=== PATIENT | female | born 1985 | race Caucasian/White ===

== ENCOUNTER 2018-03-12 09:58 | Emergency (ER) | payer MEDICAID ==
--- NOTE | 2018-03-12 10:07 | ER Document Report ---
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 She has developed a tonsillitis and wants to know if it strep throat or an STD. She also is complaining of pelvic pain without vaginal discharge genitalia lesions. No menses for 2 years. Associated Symptoms: None Exacerbated by: Other - Swallowing Relieved by: Denies - ROS ROS below otherwise negative: Yes Systems Reviewed and Negative: Yes All other systems reviewed and negative Past Medical History - General Information source: Patient Last Menstrual Period: 2 years ago - Social History Smoking Status: Current Every Day Smoker Frequency of alcohol use: None Drug Abuse: None Lives with: Family Family History: Reviewed & Not Pertinent - Medical History Medical History: Negative Notes: Obese, amenorrhea Past Surgical History: Reports: Hx Tubal Ligation Vertical Provider Document - CONSTITUTIONAL Agree With Documented VS: Yes Exam Limitations: No Limitations General Appearance: No Apparent Distress - INFECTION CONTROL TRAVEL OUTSIDE OF THE [place] IN LAST 30 DAYS: No - HEENT Notes: [place] exudative tonsils - NECK Neck: Supple, Lymphadenopathy-Left, Lymphadenopathy-Right - Anterior anterior - RESPIRATORY Respiratory: Breath Sounds Normal, No Respiratory Distress - CARDIOVASCULAR Cardiovascular: Regular Rate, Regular Rhythm - GI/ABDOMEN Gastrointestinal: Abdomen Soft, Abdomen Non-Tender, No Organomegaly - MUSCULOSKELETAL/EXTREMETIES Musculoskeletal/Extremeties: MAEW - NEURO Level of Consciousness: Awake - DERM Integumentary: Warm Course - Re-evaluation Re-evalutation: 03/12/18 rapid strept negtative. wet prep consistant with bacterial vaginosis. pt will call me vasiliy for the STD results. 03/12/18 pt called back, the std negative. - Vital Signs Vital signs: Temp Pulse Resp BP Pulse Ox 98.6 F 95 20 134/83 H 96 03/12/18 10:03 03/12/18 10:03 03/12/18 10:03 03/12/18 10:03 03/12/18 10:03 Discharge - Discharge Clinical Impression: Exudative tonsillitis, Bacterial vaginosis, Pelvic pain Condition: Good Disposition: HOME, SELF-CARE Instructions: Antinausea Medication ([facility]), Azithromycin ([facility]), Metronidazole ( [facility]), Rocephin ([facility]), Tonsillitis ([facility]), Vaginosis, Bacterial ([facility]) Additional Instructions: Urine culture is pending Throat culture is pending Rocephin for possible gonorrhea Keflex for tonsillitis azithromycin for possible chlamydia Call me in [address]-T culture results at [phone] Prescriptions: Cephalexin Monohydrate [Keflex 500 mg Capsule] 500 mg PO QID #40 capsule Metronidazole 500 mg PO BID #14 tablet Forms: Return to Work Referrals: DAPHNE OLVERA DO [Primary Care Provider] - Follow up as needed
[2018-03-12 10:50] LABS: RBCS (WET MOUNT) FEW RBCS SEEN; T.VAGINALIS (WET MOUNT) NO TRICHOMONAS SEEN; WBCS (WET MOUNT) FEW WBCS SEEN; YEAST (WET MOUNT) YEAST SEEN
[2018-03-12 10:51] LABS: BACTERIA (WET MOUNT) 3+ BACTERIA SEEN; EPITHELIALS (WET MOUNT) 4+ EPITHELIALS SEEN
[2018-03-12 11:08] LABS: APPEARANCE,URINE CLOUDY; BILIRUBIN,URINE NEGATIVE (NEGATIVE); COLOR,URINE YELLOW; GLUCOSE, URINE NEGATIVE (NEGATIVE); KETONES,URINE NEGATIVE (NEGATIVE); LEUKOCYTE ESTERASE,URINE NEGATIVE (NEGATIVE); NITRITE,URINE NEGATIVE (NEGATIVE); PROTEIN,URINE NEGATIVE (NEGATIVE); URINE SPECIFIC GRAVITY 1.024
[2018-03-12] MEDS ORDERED: CEFTRIAXONE INJ 250 MG VIAL IM ONE (11:13)
[2018-03-12] MEDS ORDERED: AZITHROMYCIN 250 MG TABLET PO ONE (11:13)
[2018-03-12] MEDS ORDERED: ONDANSETRON 4 MG TAB.RAPDIS PO ONE (11:13)
[2018-03-12] MEDS ORDERED: LIDOCAINE 1% INJ-PF (10 MG/ML) 30 ML SDV INJ ONE (11:45)
[2018-03-12 12:14] LABS: CHLAM PCR NOT DETECTED (NOT DETECT); GON PCR NOT DETECTED (NOT DETECT)
[2018-03-12 12:29] VITALS: BP 127/75
== END 2018-03-12 12:28 | disposition home or self-care (01) ==
LOC: ER 09:58
DX: J03.90 Acute tonsillitis, unspecified (principal); R59.0 Localized enlarged lymph nodes; N76.0 Acute vaginitis; B96.89 Other specified bacterial agents as the cause of diseases classified elsewhere; R10.2 Pelvic and perineal pain; F17.200 Nicotine dependence, unspecified, uncomplicated; Z20.2 Contact with and (suspected) exposure to infections with a predominantly sexual mode of transmission
CPT/HCPCS: 99283; 96372; 87070; 87086; 87210; 87880; 81025; 87077; 81001; 87491; 87591; Q0144; S0119; J3490; J0696